=== PATIENT | female | born 1960 | race Two or more races ===

== ENCOUNTER 2017-08-02 15:46 | Emergency (ER) | payer OTHER ==
[2017-08-02 16:07] VITALS: BP 135/71; PULSE 66; TEMP 98.5; BMI 32.9
[2017-08-02] MEDS ORDERED: ONDANSETRON *ODT* 4 MG TABLET SL ONE (16:08)
[2017-08-02] MEDS ORDERED: MECLIZINE HCL 25 MG TABLET (FP) PO ONE (16:08)
--- NOTE | 2017-08-02 16:09 | PDOC ---
Rapid Medical Evaluation Time Seen by Provider: 08/02/17 16:03 Medical Evaluation: Allergies Allergy/AdvReac Type Severity Reaction Status Date / Time No Known Drug Allergies Allergy Verified 12/04/14 12:33 08/02/17 16:04 The patient presents with a chief complaint of: Severe headache, chest pressure , since two days. Vomited twice today. Admits to dizziness, room spinning. Reports head motion makes her dizziness worse. I have performed a brief in-person evaluation of this patient; Pertinent physical exam findings: EOMI, reports increased spinning with movements. Afebrile. Gait intact I have ordered the following: CBC, CMP, Cardiac profile, EKG, Head CT, meclizine, zofran The patient will proceed to the ED for further evaluation.
[2017-08-02 18:00] LABS: BASO % 0.5 % (0-2.0); EOS % 0.8 % (0-4.5); HEMATOCRIT 42.6 % (32.4-45.2); HEMOGLOBIN 14.1 GM/dL (10.7-15.3); LYMPH % 15.8 % (8-40); MCH 29.4 pg (25.7-33.7); MCHC 33.1 g/dl (32.0-36.0); MEAN CELL VOLUME 88.8 fl (80-96); MONO % 4.1 % (3.8-10.2); NEUT % 78.8 % (42.8-82.8); PLATELET COUNT 289 K/MM3 (134-434); RBC 4.79 M/mm3 (3.60-5.2); RDW 13.6 % (11.6-15.6); WHITE BLOOD COUNT 7.8 K/mm3 (4.0-10.0)
[2017-08-02 18:01] LABS: URINE APPEARANCE CLEAR; URINE BILIRUBIN NEGATIVE (NEGATIVE); URINE BLOOD NEGATIVE (NEGATIVE); URINE COLOR STRAW; URINE GLUCOSE (UA) NEGATIVE (NEGATIVE); URINE KETONE NEGATIVE (NEGATIVE); URINE LEUK ESTERASE TRACE (NEGATIVE); URINE NITRITE NEGATIVE (NEGATIVE); URINE PROTEIN NEGATIVE (NEGATIVE); URINE UROBILINOGEN NEGATIVE mg/dL (0.2-1.0)
[2017-08-02 18:13] LABS: ALBUMIN 3.8 g/dl (3.4-5.0); ALK PHOS 92 U/L (45-117); ANION GAP 5 (8-16); BILIRUBIN,TOTAL 0.5 mg/dL (0.2-1.0); BLOOD UREA NITROGEN 12 mg/dL (7-18); CALCIUM 9.1 mg/dL (8.5-10.1); CHLORIDE 109 mmol/L (98-107); CO2 27 mmol/L (21-32); CREATININE 0.8 mg/dL (0.55-1.02); GLUCOSE,RANDOM 131 mg/dL (74-106); SGOT/AST 21 U/L (15-37); SGPT/ALT 41 U/L (12-78); SODIUM 141 mmol/L (136-145); TOT PROT 7.3 g/dl (6.4-8.2)
[2017-08-02 18:23] LABS: INR 1.09 (0.82-1.09); PROTHROMBIN TIME (PATIENT) 12.3 SEC (9.98-11.88)
--- NOTE | 2017-08-02 20:04 | PDOC ---
History of Present Illness - General Chief Complaint: Lightheaded Stated Complaint: CHEST PAIN/DIZZINESS/VOMITING Time Seen by Provider: 08/02/17 16:03 - History of Present Illness Initial Comments: 08/02/17 20:16 Ms. Guzman is a 56 yo female w/ pmh of HTN and cervical spine herniated disc who presents c/o an all day history of headache with dizziness and the feeling that "the world is spinning." She had two episodes of vomiting at around 2 o'clock today that she reports was food only. She reports the dizziness is increased with lateral gaze to either side. The patient denies chest pain and shortness of breath. Denies fever, chills, diarrhea and constipation. Denies dysuria, frequency, urgency and hematuria. Allergies: NKDA Past History - Past Medical History Allergies/Adverse Reactions: Allergies Allergy/AdvReac Type Severity Reaction Status Date / Time No Known Drug Allergies Allergy Verified 08/02/17 16:07 Home Medications: Ambulatory Orders Naproxen [Naprosyn -] 500 mg PO BID PRN 10/14/14 Alendronate Na [Fosamax (Weekly)] 70 mg PO Q7D 10/29/14 Verapamil HCl [Verapamil ER] 240 mg PO DAILY 10/29/14 Ciprofloxacin [Cipro (Restricted To Id)] 500 mg PO Q12H #28 tablet 12/04/14 Meclizine HCl [Antivert -] 25 mg PO TID PRN #15 tablet 08/02/17 Anemia: No Asthma: No Cancer: No Cardiac Disorders: No CVA: No COPD: No CHF: No Dementia: No Diabetes: No GI Disorders: No Disorders: No HTN: Yes Hypercholesterolemia: No Liver Disease: No Seizures: No Thyroid Disease: No - Surgical History Abdominal Surgery: No Appendectomy: No Cardiac Surgery: No Cholecystectomy: No Lung Surgery: No Neurologic Surgery: No Orthopedic Surgery: No - Suicide/Smoking/Psychosocial Hx Smoking History: Never smoked Information on smoking cessation initiated: No Hx Alcohol Use: No Drug/Substance Use Hx: No Substance Use Type: None Hx Substance Use Treatment: No *Physical Exam - Vital Signs Last Vital Signs Temp Pulse Resp BP Pulse Ox 98.5 F 66 19 135/71 98 08/02/17 16:04 08/02/17 16:04 08/02/17 16:04 08/02/17 16:04 08/02/17 16:04 ED Treatment Course - LABORATORY CBC & Chemistry Diagram: 08/02/17 17:39 08/02/17 17:39 - ADDITIONAL ORDERS Additional order review: Laboratory Results 08/02/17 08/02/17 08/02/17 17:40 17:39 17:39 PT with INR INR Sodium 141 Potassium 4.0 Chloride 109 H Carbon Dioxide 27 Anion Gap 5 L BUN 12 Creatinine 0.8 Creat Clearance w eGFR > 60 Random Glucose 131 H Calcium 9.1 Total Bilirubin 0.5 D AST 21 ALT 41 D Alkaline Phosphatase 92 Creatine Kinase 56 Troponin I < 0.02 Total Protein 7.3 Albumin 3.8 Urine Color Straw Urine Appearance Clear Urine pH 6.0 Ur Specific Nada 1.003 Urine Protein Negative Urine Glucose (UA) Negative Urine Ketones Negative Urine Blood Negative Urine Nitrite Negative Urine Bilirubin Negative Urine Urobilinogen Negative Ur Leukocyte Esterase Trace 08/02/17 17:39 PT with INR 12.30 H INR 1.09 Sodium Potassium Chloride Carbon Dioxide Anion Gap BUN Creatinine Creat Clearance w eGFR Random Glucose Calcium Total Bilirubin AST ALT Alkaline Phosphatase Creatine Kinase Troponin I Total Protein Albumin Urine Color Urine Appearance Urine pH Ur Specific Nada Urine Protein Urine Glucose (UA) Urine Ketones Urine Blood Urine Nitrite Urine Bilirubin Urine Urobilinogen Ur Leukocyte Esterase 08/02/17 17:39 RBC 4.79 MCV 88.8 MCHC 33.1 RDW 13.6 MPV 9.0 Neutrophils % 78.8 Lymphocytes % 15.8 Monocytes % 4.1 Eosinophils % 0.8 Basophils % 0.5 Medical Decision Making - Medical Decision Making 08/02/17 23:21 Ms. Guzman is a 56 yo female w/ HTN presenting with acute vertigo symptoms. Patient reports resolution with Meclizine. Toradol given as well for resolution of headache. Patient feels better and would like to go home. Discharging with Rx for Meclizine and instructions to follow-up with Neurology / ENT. Patient verbalized agreement and understanding with plan. *DC/Admit/Observation/Transfer Diagnosis at time of Disposition: Vertigo - Discharge Dispostion Disposition: HOME - Referrals Referrals: Roman Lorenz MD [Primary Care Provider] - Juan Luis Gonzalez MD [Staff Physician] - Chu Shaver MD [Staff Physician] - - Patient Instructions Printed Discharge Instructions: DI for Vertigo Additional Instructions: Please follow-up with primary care provider early next week as discussed. A prescription has been sent to your pharmacy for the dizziness medication. Take as directed and return to emergency room if any increase in dizziness, pain, fever, chills, or other symptoms. If you are unable to contact your primary physician follow-up with ENT or Neurology doctors as listed. We hope you feel better soon. - Post Discharge Activity
[2017-08-02] MEDS ORDERED: MECLIZINE HCL 12.5 MG TABLET PO ONE (20:20)
[2017-08-02] MEDS ORDERED: METOCLOPRAMIDE HCL INJECTION 10 MG/2 ML VIAL IVPUSH ONE (20:20)
[2017-08-02] MEDS ORDERED: SODIUM CHLORIDE 1,000 ML IV STA (20:21)
--- NOTE | 2017-08-02 20:24 | PDOC ---
Attending Attestation - Resident Resident Name: Calderon Torres - ED Attending Attestation I have performed the following: I have examined & evaluated the patient, The case was reviewed & discussed with the resident, I agree w/resident's findings & plan, Exceptions are as noted - Medical Decision Making 08/02/17 20:24 I, Dr. Brenda Amin, DO, attest that this document has been prepared under my direction and personally reviewed by me in its entirety. I further attest, that it accurately reflects all work, treatment, procedures and medical decision -making performed by me. 08/02/17 22:25 a/p: 62yo female with acute onset of dizziness/vertigo -also with machado will obtain head ct, labs, ekg -will give reglan, benadryl, meclizine -neuro intact will monitor and reassess <Brenda Amin - Last Filed: 08/02/17 22:25> - HPI HPI: 08/02/17 23:14 Patient is a 56 year old female with a significant past medical history of HTN, Cervical spine herniated disc, who presents to the ED with complaints of headache that began earlier today. Patient reports experiencing sudden dizziness and headache this morning stating it felt like the room was beginning to spin. As per patient's , patient experienced 2 episodes of vomiting this afternoon secondary to dizziness. Denies chest pain, SOB. Denies fevers, chills. Denies contact with sick individuals, out of state travelling. Denies any other symptoms. Allergies: None Social history: Lives with . No smoking. No alcohol. No illicit drugs. Surgical history: None PMD: Dr. Lorenz. - Physicial Exam PE: 08/02/17 23:15 GENERAL: Awake, alert, and fully oriented, in no acute distress HEAD: No signs of trauma EYES: PERRLA, EOMI, sclera anicteric, conjunctiva clear ENT: Auricles normal inspection, hearing grossly normal, nares patent, oropharynx clear without exudates. Moist mucosa NECK: Normal ROM, supple, no lymphadenopathy, JVD, or masses LUNGS: Breath sounds equal, clear to auscultation bilaterally. No wheezes, and no crackles HEART: Regular rate and rhythm, normal S1 and S2, no murmurs, rubs or gallops ABDOMEN: Soft, nontender, normoactive bowel sounds. No guarding, no rebound. No masses EXTREMITIES: Normal range of motion, no edema. No clubbing or cyanosis. No cords, erythema, or tenderness NEUROLOGICAL: No horizontal nystagmus at this time. Cranial nerves II through XII grossly intact. Normal speech, SKIN: Warm, Dry, normal turgor, no rashes or lesions noted. - Medical Decision Making 08/02/17 23:15 Documentation prepared by Moshe Bauer, acting as medical assistant per diem for Brenda Amin DO, MD/. <Moshe Bauer - Last Filed: 08/02/17 23:15> Heart Score/ECG Review - ECG Intrepretation Comment:: 08/02/17 22:25 sinus at 61, nl axis, nl interval, no acute st/t wave findings <Brenda Amin - Last Filed: 08/02/17 22:25>
[2017-08-02] MEDS ORDERED: METOCLOPRAMIDE HCL INJECTION 10 MG/2 ML VIAL ONE (20:49)
[2017-08-02] MEDS ORDERED: MECLIZINE HCL 25 MG TABLET (FP) ONE (20:50)
[2017-08-02] MEDS ORDERED: KETOROLAC TROMETHAMINE 15 MG/ML VIAL IVPUSH ONE (22:15)
[2017-08-02] MEDS ORDERED: KETOROLAC TROMETHAMINE 15 MG/ML VIAL ONE (23:19)
[2017-08-03 00:04] LABS: EPI CELLS RARE /HPF (FEW); URINE MUCUS RARE
--- NOTE | 2017-08-03 10:01 | EKG ---
Test Reason : Blood Pressure : / mmHG Vent. Rate : 061 BPM Atrial Rate : 061 BPM P-R Int : 150 ms QRS Dur : 078 ms QT Int : 430 ms P-R-T Axes : 030 021 020 degrees QTc Int : 432 ms NORMAL SINUS RHYTHM NORMAL ECG WHEN COMPARED WITH ECG OF 20-NOV-2014 08:31, NO SIGNIFICANT CHANGE WAS FOUND Confirmed by MD MARILYN, LEA ([id number]) on 08/03/2017 10:00:42 AM Referred By: Confirmed By:LEA SANDERS MD
== END 2017-08-02 23:35 | disposition home or self-care (01) ==
LOC: JER 15:46
PROC: 3E0333Z Introduction of Anti-inflammatory into Peripheral Vein, Percutaneous Approach (ICD-10-PCS; principal; 2017-08-02)
PROC: 3E033GC Introduction of Other Therapeutic Substance into Peripheral Vein, Percutaneous Approach (ICD-10-PCS; 2017-08-02)
PROC: 3E033GC Introduction of Other Therapeutic Substance into Peripheral Vein, Percutaneous Approach (ICD-10-PCS; 2017-08-02)
DX: R42 Dizziness and giddiness (principal)
CPT/HCPCS: 36415; 70450-TC; 80053; 81003; 81015; 82550; 84484; 85025; 85610; 93005; 93010; 99282-25